=== PATIENT | female | born 1975 | race African-American/Black ===

== ENCOUNTER 2016-06-13 14:38 | Emergency (ER) | payer OTHER ==
[~2016-06-13] VITALS: Ht 175.3 cm; Wt 113.4 kg
[~2016-06-13 14:38] MED LIST: DELTASONE20 MG PO; HYCET 7.5 MG-3473 ML PO; IBUPROFEN 800800 MG PO; MOBIC15 MG PO; NAPROSYN500 MG PO; VENTOLIN HFA 1818 GM INH
[2016-06-13 14:54] VITALS: BP 120/81
[2016-06-13] MEDS ORDERED: IBUPROFEN 800800 MG PO (15:16)
[2016-06-13] MEDS ORDERED: FLEXERIL PO (15:16)
== END 2016-06-13 15:38 | disposition home or self-care (01) ==
LOC: ER 14:38
DX: M54.5 Low back pain (principal); M79.659 Pain in unspecified thigh; J45.909 Unspecified asthma, uncomplicated; Z88.0 Allergy status to penicillin

== ENCOUNTER 2016-09-07 21:05 | Emergency (ER) | payer OTHER ==
[~2016-09-07] VITALS: Ht 175.3 cm; Wt 117.9 kg
[~2016-09-07 21:05] MED LIST changes: +FLEXERIL PO
[2016-09-07 21:09] VITALS: BP 119/84
[2016-09-07] MEDS ORDERED: KEFLEX500 MG PO ×2 (21:34→21:36)
[2016-09-07] MEDS ORDERED: MOBIC15 MG PO (21:38)
== END 2016-09-07 21:58 | disposition home or self-care (01) ==
LOC: ER 21:05
DX: T25.521A Corrosion of first degree of right foot, initial encounter (principal); J45.909 Unspecified asthma, uncomplicated; Z88.0 Allergy status to penicillin; Y93.89 Activity, other specified; Y92.89 Other specified places as the place of occurrence of the external cause; Y99.8 Other external cause status

== ENCOUNTER 2016-10-09 23:54 | Emergency (ER) | payer OTHER ==
[~2016-10-09] VITALS: Ht 175.3 cm; Wt 138.3 kg
[~2016-10-09 23:54] MED LIST changes: +KEFLEX500 MG PO
[2016-10-10] MEDS ORDERED: NAPROSYN500 MG PO (02:11)
[2016-10-10 02:16] VITALS: BP 129/81
== END 2016-10-10 02:29 | disposition home or self-care (01) ==
LOC: ER 23:54
DX: M25.572 Pain in left ankle and joints of left foot (principal); J45.909 Unspecified asthma, uncomplicated; Z88.0 Allergy status to penicillin

== ENCOUNTER 2017-02-19 12:34 | Emergency (ER) | payer OTHER ==
[~2017-02-19] VITALS: Ht 175.3 cm; Wt 117.9 kg
[~2017-02-19 12:34] MED LIST changes: +FLAGYL500 MG PO
[2017-02-19 13:22] LABS: ABSOLUTE NEUTROPHILS 4.4 thou/uL (1.4-8.2); BASOPHILS 1.2 % (0.0-2.0); HEMATOCRIT 36.4 % (37.0-47.0); HEMOGLOBIN 11.8 gm/dL (12.0-15.0); LYMPHOCYTES 34.7 % (24.0-44.0); MCH 25.2 pg (26.0-34.0); MCHC 32.5 g/dL (28.0-37.0); MCV 77.6 fL (80.0-100.0); PLATELET COUNT 387 thou/uL (150-400); POLYS 58.1 % (36.0-66.0); RDW 15.8 % (10.5-14.5); WBC 7.6 thou/uL (4.0-11.0)
[2017-02-19 13:23] LABS: MANUAL DIFF NO
[2017-02-19 13:31] LABS: CALCIUM 9.1 mg/dL (8.5-10.1); CREATININE 0.8 mg/dL (0.6-1.0); POTASSIUM 3.6 mmol/L (3.5-5.1)
[2017-02-19 13:37] LABS: ALBUMIN 3.1 g/dL (3.4-5.0); TOTAL BILIRUBIN 0.3 mg/dL (<0.1-1.0); TOTAL PROTEIN 8.2 g/dL (6.4-8.2)
[2017-02-19 14:20] LABS: URINE BILIRUBIN NEGATIVE (Negative); URINE BLOOD TRACE (Negative); URINE COLOR YELLOW; URINE GLUCOSE-RANDOM* NEGATIVE (Negative); URINE KETONES NEGATIVE (Negative); URINE PROTEIN (DIPSTICK) NEGATIVE (Negative)
[2017-02-19 14:22] LABS: URINE LEUKOCYTES-REFLEX TRACE (Negative)
[2017-02-19] MEDS ORDERED: NORFLEX100 MG PO (14:26)
[2017-02-19] MEDS ORDERED: NAPROSYN500 MG PO (14:26)
[2017-02-19 14:37] VITALS: BP 127/78
== END 2017-02-19 14:40 | disposition home or self-care (01) ==
LOC: ER 12:34
PROVIDERS: Emergency Medicine; Physician Assistant
DX: M76.892 Other specified enthesopathies of left lower limb, excluding foot (principal); M76.891 Other specified enthesopathies of right lower limb, excluding foot; S39.012A Strain of muscle, fascia and tendon of lower back, initial encounter; R10.2 Pelvic and perineal pain; J45.909 Unspecified asthma, uncomplicated; Z88.0 Allergy status to penicillin; X58.XXXA Exposure to other specified factors, initial encounter; Y93.89 Activity, other specified; Y92.89 Other specified places as the place of occurrence of the external cause; Y99.8 Other external cause status

== ENCOUNTER 2017-04-26 12:49 | Emergency (ER) | payer OTHER ==
[~2017-04-26] VITALS: Ht 175.3 cm; Wt 99.8 kg
--- NOTE | ~2017-04-26 | EKG ---
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
[~2017-04-26 12:49] MED LIST changes: +NORFLEX100 MG PO; +ROBAXIN500 MG PO; +TRAMADOL 50 MG50 MG PO
[2017-04-26 13:23] LABS: ABSOLUTE NEUTROPHILS 5.6 thou/uL (1.4-8.2); BASOPHILS 1.1 % (0.0-2.0); EOSINOPHILS 0.7 % (0.0-3.0); HEMATOCRIT 36.3 % (37.0-47.0); HEMOGLOBIN 11.4 gm/dL (12.0-15.0); LYMPHOCYTES 25.4 % (24.0-44.0); MCH 24.3 pg (26.0-34.0); MCHC 31.5 g/dL (28.0-37.0); MCV 77.3 fL (80.0-100.0); MONOCYTES 4.1 % (1.0-8.0); PLATELET COUNT 381 thou/uL (150-400); POLYS 68.7 % (36.0-66.0); RDW 15.6 % (10.5-14.5); WBC 8.1 thou/uL (4.0-11.0)
[2017-04-26 13:27] LABS: MANUAL DIFF NO
[2017-04-26 13:32] LABS: ANION GAP 7 mmol/L (7-16); BUN 9 mg/dL (7-18); CALCIUM 8.5 mg/dL (8.5-10.1); CHLORIDE 105 mmol/L (98-107); CO2 28 mmol/L (21-32); CREATININE 0.7 mg/dL (0.6-1.0); GLUCOSE 113 mg/dL (74-106); POTASSIUM 3.3 mmol/L (3.5-5.1); SODIUM 140 mmol/L (136-145)
[2017-04-26 13:41] LABS: ALKALINE PHOSPHATASE 110 U/L (46-116); MAGNESIUM 1.8 mg/dL (1.8-2.4); SGOT 14 U/L (15-37); SGPT 16 U/L (30-65); TOTAL BILIRUBIN 0.5 mg/dL (<0.1-1.0); TOTAL PROTEIN 8.3 g/dL (6.4-8.2); TROPONIN-I < 0.04 ng/mL (<0.06)
[2017-04-26] MEDS ORDERED: ACETAMINOPHEN-1 EAC1 PO (14:31)
[2017-04-26] MEDS ORDERED: PREDNISONE 20 M20 MG PO (14:31)
[2017-04-26] MEDS ORDERED: VENTOLIN HFA 1818 GM INH (14:31)
[2017-04-26 14:33] VITALS: BP 120/72
== END 2017-04-26 15:19 | disposition home or self-care (01) ==
LOC: ER 12:49
PROVIDERS: Emergency Medicine
DX: J45.909 Unspecified asthma, uncomplicated (principal); E66.9 Obesity, unspecified; Z68.32 Body mass index [BMI] 32.0-32.9, adult; Z88.0 Allergy status to penicillin

== ENCOUNTER 2017-06-30 22:44 | Emergency (ER) | payer OTHER ==
[~2017-06-30] VITALS: Ht 175.3 cm; Wt 127.0 kg
[~2017-06-30 22:44] MED LIST changes: +ACETAMINOPHEN-1 EAC1 PO; +PREDNISONE 20 M20 MG PO
[2017-06-30] MEDS ORDERED: ROBAXIN 750 MG750 M1 PO (22:50)
[2017-06-30] MEDS ORDERED: FLEXERIL PO (23:06)
[2017-06-30] MEDS ORDERED: NAPROXEN SODIU220 MG PO (23:06)
== END 2017-06-30 23:22 | disposition home or self-care (01) ==
LOC: ER 22:44
DX: M54.5 Low back pain (principal); J45.909 Unspecified asthma, uncomplicated; Z88.0 Allergy status to penicillin

== ENCOUNTER 2017-08-12 23:53 | Emergency (ER) | payer OTHER ==
[~2017-08-12] VITALS: Ht 175.3 cm; Wt 134.7 kg
[~2017-08-12 23:53] MED LIST changes: +NAPROXEN SODIU220 MG PO; +ROBAXIN 750 MG750 M1 PO
[2017-08-13 00:08] LABS: URINE BILIRUBIN NEGATIVE (Negative); URINE BLOOD 2+ (Negative); URINE CLARITY CLEAR; URINE COLOR YELLOW; URINE GLUCOSE-RANDOM* NEGATIVE (Negative); URINE KETONES TRACE (Negative); URINE LEUKOCYTES NEGATIVE (Negative); URINE NITRITE NEGATIVE (Negative); URINE PROTEIN (DIPSTICK) NEGATIVE (Negative); URINE SPECIFIC GRAVITY >= 1.030 (1.005-1.035); URINE UROBILINOGEN 0.2 E.U./dl (0.2-1.0)
[2017-08-13 00:17] LABS: BACTERIA 1-9 Few /HPF (None Seen); CASTS None Seen /LPF (None Seen); CRYSTALS None Seen /LPF (None Seen); MUCUS 0-3 Light strn/LPF (None Seen); SQUAMOUS 4-10 Moderate /LPF (0-3); URINE RBC 3-10 Few /HPF (0-2); URINE WBC 0-5 Rare /HPF (0-5)
[2017-08-13] MEDS ORDERED: FLAGYL500 MG PO (01:04)
== END 2017-08-13 01:20 | disposition home or self-care (01) ==
LOC: ER 23:53
PROVIDERS: Emergency Medicine
DX: N76.0 Acute vaginitis (principal); B96.89 Other specified bacterial agents as the cause of diseases classified elsewhere; R10.2 Pelvic and perineal pain; J45.909 Unspecified asthma, uncomplicated; Z88.0 Allergy status to penicillin

== ENCOUNTER 2018-02-26 15:19 | Emergency (ER) | payer OTHER ==
[~2018-02-26] VITALS: Ht 175.3 cm; Wt 127.0 kg
[2018-02-26] MEDS ORDERED: MOBIC15 MG PO (17:09)
[2018-02-26 17:15] VITALS: BP 123/73
== END 2018-02-26 17:15 | disposition home or self-care (01) ==
LOC: ER 15:19
DX: M65.272 Calcific tendinitis, left ankle and foot (principal); J45.909 Unspecified asthma, uncomplicated; Z88.0 Allergy status to penicillin

== ENCOUNTER 2018-11-15 15:24 | Emergency (ER) | payer OTHER ==
[~2018-11-15] VITALS: Ht 175.3 cm; Wt 121.1 kg
[2018-11-15 15:25] VITALS: BP 125/90
[2018-11-15] MEDS ORDERED: MOBIC15 MG PO (16:18)
[2018-11-15 16:47] VITALS: BP 125/90
== END 2018-11-15 16:30 | disposition home or self-care (01) ==
LOC: ER 15:24 → EROBS 16:30 → ER 16:41
DX: S46.811A Strain of other muscles, fascia and tendons at shoulder and upper arm level, right arm, initial encounter (principal); S56.811A Strain of other muscles, fascia and tendons at forearm level, right arm, initial encounter; Z88.0 Allergy status to penicillin; J45.909 Unspecified asthma, uncomplicated; W22.8XXA Striking against or struck by other objects, initial encounter; Y92.89 Other specified places as the place of occurrence of the external cause; Y93.89 Activity, other specified; Y99.8 Other external cause status

== ENCOUNTER 2019-05-10 15:24 | Emergency (ER) | payer OTHER ==
[~2019-05-10] VITALS: Ht 175.3 cm; Wt 126.1 kg
[2019-05-10 17:02] VITALS: BP 117/80
== END 2019-05-10 17:04 | disposition home or self-care (01) ==
LOC: ER 15:24
DX: M79.644 Pain in right finger(s) (principal); J45.909 Unspecified asthma, uncomplicated; Z88.0 Allergy status to penicillin

== ENCOUNTER 2019-08-03 22:22 | Emergency (ER) | payer OTHER ==
[~2019-08-03] VITALS: Ht 175.3 cm; Wt 124.7 kg
[2019-08-03] MEDS ORDERED: NORCO 5-325 TA1 EAC1 PO (23:44)
[2019-08-04 00:05] VITALS: BP 135/78
== END 2019-08-04 00:05 | disposition home or self-care (01) ==
LOC: ER 22:22
DX: S86.001A Unspecified injury of right Achilles tendon, initial encounter (principal); J45.909 Unspecified asthma, uncomplicated; W18.39XA Other fall on same level, initial encounter; Y93.89 Activity, other specified; Y92.89 Other specified places as the place of occurrence of the external cause; Y99.8 Other external cause status

== ENCOUNTER 2020-10-15 17:48 | Emergency (ER) | payer OTHER ==
[~2020-10-15] VITALS: Ht 175.3 cm; Wt 123.8 kg
[~2020-10-15 17:48] MED LIST changes: +NORCO 5-325 TA1 EAC1 PO
[2020-10-15 18:06] VITALS: BP 132/88
[2020-10-15] MEDS ORDERED: DOXYCYCLINE 10100 MG PO (19:00)
[2020-10-15] MEDS ORDERED: MOBIC7.5 MG PO (19:00)
[2020-10-15] MEDS ORDERED: ULTRAM 50MG TAB50 MG PO (19:00)
== END 2020-10-15 19:14 | disposition home or self-care (01) ==
LOC: ER 17:48
DX: L02.414 Cutaneous abscess of left upper limb (principal); J45.909 Unspecified asthma, uncomplicated; Z88.0 Allergy status to penicillin

== ENCOUNTER 2021-03-11 17:16 | Emergency (ER) | payer OTHER, BC ==
[~2021-03-11] VITALS: Ht 175.3 cm; Wt 127.0 kg
--- NOTE | ~2021-03-11 | EKG ---
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
[~2021-03-11 17:16] MED LIST changes: +DOXYCYCLINE 10100 MG PO; +MOBIC7.5 MG PO; +ULTRAM 50MG TAB50 MG PO
[2021-03-11 18:10] LABS: URINE BILIRUBIN NEGATIVE (Negative); URINE BLOOD 1+ (Negative); URINE CLARITY CLEAR; URINE COLOR YELLOW; URINE GLUCOSE-RANDOM* NEGATIVE (Negative); URINE KETONES TRACE (Negative); URINE LEUKOCYTES-REFLEX NEGATIVE (Negative); URINE NITRITE-REFLEX NEGATIVE (Negative); URINE PROTEIN (DIPSTICK) NEGATIVE (Negative); URINE SPECIFIC GRAVITY 1.025 (1.005-1.035)
[2021-03-11] MEDS ORDERED: MOBIC7.5 MG PO (18:31)
[2021-03-11] MEDS ORDERED: ZANAFLEX4 MG PO (18:31)
[2021-03-11 18:34] LABS: SQUAMOUS 4-10 Moderate /LPF (0-3)
[2021-03-11 18:35] LABS: BACTERIA-REFLEX 1-9 Few /HPF (None Seen); MUCUS 4-6 Moderate strn/LPF (None Seen); URINE RBC 3-10 Few /HPF (NONE SEEN); URINE WBC-REFLEX 0-5 Rare /HPF (0-5)
[2021-03-11 19:17] LABS: ABSOLUTE NEUTROPHILS 5.7 thou/uL (1.4-8.2); BASOPHILS 0.8 % (0.0-2.0); EOSINOPHILS 1.4 % (0.0-3.0); HEMATOCRIT 39.9 % (37.0-47.0); HEMOGLOBIN 12.8 gm/dL (12.0-15.0); LYMPHOCYTES 25.2 % (24.0-44.0); MCH 26.9 pg (26.0-34.0); MCV 84.2 fL (80.0-100.0); MONOCYTES 4.6 % (1.0-8.0); PLATELET COUNT 390 thou/uL (150-400); RBC 4.74 mil/uL (4.20-5.00); RDW 13.7 % (10.5-14.5); WBC 8.4 thou/uL (4.0-11.0)
[2021-03-11 20:21] VITALS: BP 138/91
--- NOTE | 2021-03-12 14:58 | EKG ---
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
== END 2021-03-11 20:22 | disposition home or self-care (01) ==
LOC: ER 17:16
PROVIDERS: Nurse Practitioner
DX: R07.89 Other chest pain (principal); J45.909 Unspecified asthma, uncomplicated; Z98.890 Other specified postprocedural states; Z79.1 Long term (current) use of non-steroidal anti-inflammatories (NSAID); Z79.891 Long term (current) use of opiate analgesic; Z79.899 Other long term (current) drug therapy; Z88.0 Allergy status to penicillin; V49.3XXA Car occupant (driver) (passenger) injured in unspecified nontraffic accident, initial encounter; Y93.89 Activity, other specified; Y92.89 Other specified places as the place of occurrence of the external cause; Y99.8 Other external cause status

== ENCOUNTER 2021-05-12 16:26 | Emergency (ER) | payer BC ==
[~2021-05-12] VITALS: Ht 175.3 cm; Wt 127.0 kg
[~2021-05-12 16:26] MED LIST changes: +ZANAFLEX4 MG PO
[2021-05-12 16:47] VITALS: BP 121/79
[2021-05-12] MEDS ORDERED: KETOCONAZOLE15 GM TOP (17:12)
[2021-05-12] MEDS ORDERED: VALACYCLOVIR1000 MG PO (17:12)
== END 2021-05-12 17:40 | disposition home or self-care (01) ==
LOC: ER 16:26
DX: B02.9 Zoster without complications (principal); J45.909 Unspecified asthma, uncomplicated; Z88.0 Allergy status to penicillin

== ENCOUNTER 2021-06-17 17:05 | Emergency (ER) | payer BC ==
[~2021-06-17] VITALS: Ht 175.3 cm; Wt 129.3 kg
[~2021-06-17 17:05] MED LIST changes: +KETOCONAZOLE15 GM TOP; +VALACYCLOVIR1000 MG PO
[2021-06-17 19:08] LABS: ABSOLUTE NEUTROPHILS 6.9 thou/uL (1.4-8.2); BASOPHILS 0.7 % (0.0-2.0); EOSINOPHILS 0.5 % (0.0-3.0); HEMATOCRIT 40.6 % (37.0-47.0); HEMOGLOBIN 13.1 gm/dL (12.0-15.0); LYMPHOCYTES 21.7 % (24.0-44.0); MCH 27.1 pg (26.0-34.0); MCHC 32.2 g/dL (28.0-37.0); MCV 84.1 fL (80.0-100.0); MONOCYTES 5.4 % (1.0-8.0); PLATELET COUNT 365 thou/uL (150-400); POLYS 71.7 % (36.0-66.0); RBC 4.83 mil/uL (4.20-5.00); RDW 13.9 % (10.5-14.5); WBC 9.6 thou/uL (4.0-11.0)
[2021-06-17 19:19] LABS: CALCIUM 9.2 mg/dL (8.5-10.1); CREATININE 0.9 mg/dL (0.6-1.0); POTASSIUM 3.7 mmol/L (3.5-5.1)
[2021-06-17 19:30] LABS: ALBUMIN 3.2 g/dL (3.4-5.0); TOTAL BILIRUBIN 0.5 mg/dL (0.2-1.0); TOTAL PROTEIN 8.3 g/dL (6.4-8.2)
[2021-06-17 22:40] VITALS: BP 134/78
--- NOTE | 2021-06-18 08:09 | EKG ---
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: Adina : 1975 Requested By: Lalo Ventura Order Number: [id number] MD: Raoul Betancourt Measurements Intervals [place] Rate: 89 P: 39 ID: [id number] QRS: 59 QRSD: 76 T: 53 QT: 352 QTc: 429 Interpretive Statements Sinus rhythm Probable left atrial enlargement Left ventricular hypertrophy Compared to ECG 03/11/2021 17:42:51 Left ventricular hypertrophy now present Electronically Signed On 06-18-2021 8:09:21 SERVICE PERSON by Raoul Betancourt [email or web address] <ELECTRONICALLY SIGNED> By: Raoul Betancourt MD, [facility] 06/18/21 0809 21 21 Raoul Betancourt MD, FACC /EPI
== END 2021-06-17 22:41 | disposition home or self-care (01) ==
LOC: ER 17:05
PROVIDERS: Emergency Medicine
DX: R07.89 Other chest pain (principal); J45.909 Unspecified asthma, uncomplicated; Z88.0 Allergy status to penicillin